=== PATIENT | female | born 1975 | race Caucasian/White ===

== ENCOUNTER 2021-02-03 08:26 | Emergency (ER) | payer OTHER, SELFPAY ==
--- NOTE | 2021-02-03 08:54 | ED.URI ---
HPI - URI/Sore Throat General Chief Complaint: Upper Respiratory Infection Stated Complaint: Congestion,Drainage Time Seen by Provider: 02/03/21 08:55 Source: patient and RN notes reviewed Mode of arrival: ambulatory Limitations: no limitations History of Present Illness HPI Narrative: 45 year old female who presents ambulatory to [facility] with one week duration of frontal headache and sinus congestion. Patient states that she has had no cough or feelings of chest congestion, denies any shortness of breath or wheezing, denies any ear pain or any sore throat. 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 She states that she has been taking Zyrtec and Tylenol for her symptoms with no improvement. MD elicited complaint: rhinorrhea, nasal congestion and other (headache) Pertinent past history: sinusitis Onset (ago): week(s) (1) Consistency: progressively worsening Severity: moderate Pain scale (0-10): 5 Description of mucous: yellow and bloody Able to tolerate fluids by mouth: Yes Exacerbating factors: changing head position and leaning forward Relieving factors: nothing Treatments prior to arrival: acetaminophen and other (Zyrtec) Related Data Allergies Allergy/AdvReac Type Severity Reaction Status Date / Time erythromycin base Allergy Unknown Vomiting Verified 01/19/21 12:11 metformin Allergy Unknown Weakness Verified 01/19/21 12:11 Review of Systems Review of Systems: Narrative: CONSTITUTIONAL: Denies known fever, chills, or sweats. EYES: Denies visual changes, redness, or discharge. ENT: Positive rhinorrhea, congestion, no sore throat, or otalgia. CARDIOVASCULAR: Denies chest pain, palpitations, or edema. RESPIRATORY: Denies cough or dyspnea. GASTROINTESTINAL: Denies abdominal pain, nausea, vomiting, or diarrhea. GENITOURINARY: Denies dysuria or hematuria. SKIN: Denies rash or itching. MUSCULOSKELETAL: Denies back pain, joint pain, or myalgia. NEUROLOGIC:Positive for frontal headache,no numbness, or weakness. PSYCHIATRIC: Denies anxiety or depression. All systems reviewed & are unremarkable except as noted in HPI and below PMFSH Past Medical History Medical History (Updated 02/05/21 @ 11:32 by Richa Sullivan NP) Degenerative disc disease GERD (gastroesophageal reflux disease) Prehypertension Surgical History Surgical History (Updated 02/05/21 @ 11:32 by Richa Sullivan NP) History of cholecystectomy Family History Family History Mother Hypertension Family history of elevated blood lipids Family history of malignant neoplasm of breast in first degree relative, Onset Age: 42 Father Carcinoma of colon, Onset Age: 58 Other Family history of premature coronary heart disease Social History Social History (Updated 02/05/21 @ 11:31 by Richa Sullivan NP) Smoking status: Never smoker Second hand tobacco smoke exposure: No Alcohol intake: current Alcohol use details: rare social Substance use: never Living arrangements: with family Gender identity (if verbalized by the patient): Female Comments At time of signature, agree with nursing past medical, surgical, social and family history. There is no relevant family history pertinent to the presenting complaint Exam Narrative: Exam Narrative: GENERAL: Well-appearing, well-nourished, and in no acute distress. HEAD: Normocephalic, atraumatic. EYES: PERRLA and EOMI. ENT: Nares red with turbinates swollen, yellow rhinorrhea with some blood tinged mucous no acute epistaxis. Mucous membranes moist.TM's normal with good light reflex, throat pink with no lesions or exudates, post nasal drainage present. NECK: Supple.no lymphadenopathy CHEST: Clear to auscultation. No respiratory distress.SAO2 97% on room air HEAR
[2021-02-03 09:10] VITALS: BP 144/85; PULSE 87; RESP 16; TEMP 36.2; O2SAT 97
== END 2021-02-03 09:18 | disposition home or self-care (01) ==
PROVIDERS: Emergency Provider Registered Nurse; PCP Family Medicine
DX: J01.90 Acute sinusitis, unspecified (principal); K21.9 Gastro-esophageal reflux disease without esophagitis
CPT/HCPCS: 99213; G0463

== ENCOUNTER 2021-05-16 05:20 | Emergency (ER) | payer OTHER, SELFPAY ==
--- NOTE | ~2021-05-16 | XR_ITS ---
EXAMINATION: XR chest 2V 05/16/2021 06:13 INDICATION: Chest palpitations PROCEDURE: 2 view chest COMPARISON: Comparison to multiple prior studies sequentially, with oldest reviewed study dated 06/05. FINDINGS: The lungs are clear. Chronic left basilar scarring/atelectasis. The cardiomediastinal silho uette is within normal limits. There are no pleural effusions. There is no pneumothorax suspected. IMPRESSION: 1: NO ACUTE CARDIOPULMONARY DISEASE. Reviewed, dictated and finalized at location A.
[2021-05-16 05:35] VITALS: BP 148/90; PULSE 115; RESP 18; O2SAT 97
--- NOTE | 2021-05-16 05:37 | ECG_ITS ---
Measurements Intervals [place] Rate: 110 P: 17 MI: 132 QRS: 12 QRSD: 85 T: 51 QT: 319 QTc: 432 Interpretive Statements SINUS TACHYCARDIA EARLY PRECORDIAL R/S TRANSITION BORDERLINE ST ABNORMALITY- ANTEROLATERAL LEADS ABNORMAL ECG Electronically Signed On 05-16-2021 6:22:59 CDT by Onesimo Riley D.O.
--- NOTE | 2021-05-16 05:48 | ED.ARRPALP ---
HPI - Arrhythmia/Palpitations General Chief Complaint: Chest Pain Stated Complaint: Heart racing Time Seen by Provider: 05/16/21 05:29 History of Present Illness HPI narrative: 46 yo female w/ h/o anxiety presents to the ED for racing heart. She reports that she has been having issues with anxiety for the past month. For the past few days she has had frequent symptoms. Overnight last night her heart began to race, and this continued for quite some time. She says it has never lasted this long before. Related Data Home Medications Medication Instructions Recorded Confirmed dotdrhyqffgo-Dp-nkwu-minerals tablet PO 04/18/21 04/18/21 Allergies Allergy/AdvReac Type Severity Reaction Status Date / Time erythromycin base Allergy Unknown Vomiting Verified 04/18/21 10:32 metformin Allergy Unknown Weakness Verified 04/18/21 10:32 Review of Systems Review of Systems: All systems reviewed & are unremarkable except as noted in HPI and below Constitutional: Constitutional: Denies chills and Denies fever(s) Cardiovascular: Cardiovascular: Reports chest pain and Reports rapid heart rate Respiratory: Respiratory: Denies dyspnea Gastrointestinal: Gastrointestinal: Denies abdominal pain and Denies nausea Musculoskeletal: Musculoskeletal: Denies back pain Neurologic: Denies numbness and Denies weakness Psychiatric: Psychiatric: Reports anxiety PMFSH Past Medical History Medical History Degenerative disc disease GERD (gastroesophageal reflux disease) Prehypertension Surgical History Surgical History History of cholecystectomy Family History Family History Mother Hypertension Family history of elevated blood lipids Family history of malignant neoplasm of breast in first degree relative, Onset Age: 42 Father Carcinoma of colon, Onset Age: 58 Other Family history of premature coronary heart disease Social History Social History Second hand tobacco smoke exposure: No Alcohol intake: current Alcohol use details: rare social Substance use: never Gender identity (if verbalized by the patient): Female Exam Const: General: healthy appearing and no acute distress Orientation/consciousness: patient oriented x3 HENMT: Head: normal to inspection Neck: Neck: normal visual inspection Resp: Effort & Inspection: normal respiratory effort Auscultation: clear to auscultation bilaterally, no rales, no rhonchi and no wheezes Cardio: Jugular venous distension: no JVD Rate: regular rate Rhythm: regular rhythm Heart sounds: no murmurs GI: Inspection: non-distended GI Palp: Yes Soft to palpation and No Tenderness to palpation present (GI) Skin: General skin exam: normal color Neuro: General: patient oriented x3 and moves all extremities Speech: normal speech Extrem: General: normal to inspection and no edema Psych: Appearance: well kempt Affect: Anxious affect present Course Vital Signs Vital signs: Vital Signs Pulse Rate 115 H 05/16/21 05:35 Respiratory Rate 18 05/16/21 05:35 Blood Pressure 148/90 H 05/16/21 05:35 Pulse Oximetry 97 05/16/21 05:35 Pulse Rate 87 05/16/21 07:22 Respiratory Rate 16 05/16/21 07:22 Blood Pressure 129/94 H 05/16/21 07:22 Pulse Oximetry 100 05/16/21 07:22 MDM - Arrhythmia/Palpitations Differential Diagnosis Differential diagnosis: Likely palpitations, anxiety and sinus tachycardia Medical Records Attestation: I reviewed the patient's medical records. Lab Data Attestation: I reviewed the patient's lab results. Result diagrams: 05/16/21 05:52 05/16/21 05:52 Labs: Lab Results 05/16/21 05/16/21 Range/Units 05:52 05:52 WBC 12.7 H (4.5-10.0) K/mm3 RBC 5.01 (4.2-5.4) M
[2021-05-16 06:02] LABS: Basophils Absolute Auto 0.1 K/mm3 (0.0-0.1); Basophils Percent Auto 0.9 % (0.2-1.2); Eosinophils Absolute Auto 0.1 K/mm3 (0-0.3); Eosinophils Percent Auto 0.6 % (0-4.4); Hematocrit 44.7 % (37.0-47.0); Hemoglobin 14.4 g/dL (12.0-15.0); Immature Granulocyte Absolute 0.04 K/mm3 (0.00-0.031); Immature Granulocyte Percent A 0.3 % (0-0.5); Lymphocytes Absolute Auto 4.15 K/mm3 (0.9-3.2); Lymphocytes Percent Auto 32.7 % (18.3-44.2); Mean Corpuscular HGB Conc 32.2 g/dl (32-36); Mean Corpuscular Hemoglobin 28.7 pg (26-34); Mean Corpuscular Volume 89.2 fl (80-100); Mean Platelet Volume 10.7 fl (7.4-10.4); Monocytes Percent Auto 7.5 % (2.6-8.5); Neutrophils Absolute Auto 7.4 K/mm3 (1.3-6.7); Platelet Count Result 269 k/mm3 (150-375); Red Blood Count 5.01 M/mm3 (4.2-5.4); Red Cell Distribution Width 13.5 % (11.5-14.5); White Blood Count 12.7 K/mm3 (4.5-10.0)
[2021-05-16 06:10] LABS: Anion Gap 12 mmol/L (8-16); Blood Urea Nitrogen 12 mg/dL (7-17); Calcium 9.8 mg/dL (8.4-10.2); Carbon Dioxide 25 mmol/L (22-30); Chloride 100 mmol/L (98-107); Estimated CRCL calculation 73 ml/min; Estimated Glomerular Filt Rate > 60; Glucose 129 mg/dL (65-110); Potassium 3.6 mmol/L (3.4-5.0); Sodium 137 mmol/L (137-145)
[2021-05-16 06:26] VITALS: BP 125/96; PULSE 76; RESP 18; O2SAT 97
[2021-05-16 06:28] LABS: Troponin I < 0.012 ng/mL (0.000-0.034)
[2021-05-16 07:22] VITALS: BP 129/94; PULSE 87; RESP 16; O2SAT 100
== END 2021-05-16 07:29 | disposition home or self-care (01) ==
PROVIDERS: Emergency Provider Emergency Medicine; PCP Family Medicine
DX: R00.2 Palpitations (principal); F41.9 Anxiety disorder, unspecified; K21.9 Gastro-esophageal reflux disease without esophagitis
CPT/HCPCS: 36415; 71046; 80048; 84484; 85025; 93005; 99284

== ENCOUNTER 2021-06-09 10:07 | Emergency (ER) | payer OTHER, SELFPAY ==
--- NOTE | 2021-06-09 10:13 | ED.URI ---
HPI - URI/Sore Throat General Chief Complaint: Upper Respiratory Infection Stated Complaint: sinus infection Time Seen by Provider: 06/09/21 10:48 Source: patient and RN notes reviewed Mode of arrival: ambulatory Limitations: no limitations History of Present Illness HPI Narrative: 46-year-old female presents with concern for sinus pressure, sinus pain, ear popping, headache. Reports 2-day history of symptoms. Reports she has been taking Tylenol for her symptoms. Reports she has been vaccinated for Covid. She denies cough, shortness of breath, body aches, chills, sweats, fever, loss of sense of smell. MD elicited complaint: nasal congestion Related Data Home Medications Medication Instructions Recorded Confirmed arqipdezldxl-Gy-bxhw-minerals tablet PO 04/18/21 04/18/21 Allergies Allergy/AdvReac Type Severity Reaction Status Date / Time erythromycin base Allergy Unknown Vomiting Verified 06/09/21 10:34 metformin Allergy Unknown Weakness Verified 06/09/21 10:34 Review of Systems Review of Systems: CONSTITUTIONAL: Denies malaise, chills, sweats, or fever. EYES: Denies visual changes, redness, or discharge. ENT: Reports rhinorrhea, congestion, sinus pain, otalgia. Denies sore throat. CARDIOVASCULAR: Denies chest pain, palpitations, or edema. RESPIRATORY: Denies cough or dyspnea. GASTROINTESTINAL: Denies abdominal pain, nausea, vomiting, diarrhea SKIN: Denies rash or itching. MUSCULOSKELETAL: Denies myalgia. NEUROLOGIC: Denies headache. All systems reviewed & are unremarkable except as noted in HPI and below PMFSH Past Medical History Medical History Degenerative disc disease GERD (gastroesophageal reflux disease) Prehypertension Surgical History Surgical History History of cholecystectomy Family History Family History Mother Hypertension Family history of elevated blood lipids Family history of malignant neoplasm of breast in first degree relative, Onset Age: 42 Father Carcinoma of colon, Onset Age: 58 Other Family history of premature coronary heart disease Social History Social History Second hand tobacco smoke exposure: No Alcohol intake: current Alcohol use details: rare social Substance use: never Gender identity (if verbalized by the patient): Female Comments At time of signature, agree with nursing past medical, surgical, social and family history. There is no relevant family history pertinent to the presenting complaint Exam Narrative: GENERAL: Well-appearing, well-nourished, and in no acute distress. HEAD: Normocephalic EYES: PERRLA, conjunctivae clear ENT: Nares clear, turbinates edematous and erythematous, clear discharge. Mucous membranes moist. TM pearly rios with dull light reflex bilaterally; no tragal tenderness. Oropharynx erythematous without lesions. Tonsils enlarged and without exudate, no drooling, no hoarseness, no trismus, uvula midline. NECK: Supple. No lymphadenopathy CHEST: Clear to auscultation, breath sounds equal. No wheezing, rhonchi, rales, or stridor. No respiratory distress, speaks in full sentences. HEART: Regular rate and rhythm. No murmur heard. SKIN: Warm, dry, no rash. NEURO: Alert and oriented x3. PSYCH: Normal mood and affect Course Course Emergency Course: Patient is aware of diagnosis, understands and agrees to treatment plan. Anticipatory guidance given. Patient agrees to follow-up as directed and is aware of reasons to seek care at the emergency department. Portions of this record may have been created with voice recognition software Vital Signs Vital signs: Reviewed. Patient has been instructed to follow up with her primary care provider within the next week regarding her elevated blood pressure today. CATRINA GALINDO
[2021-06-09 10:19] VITALS: BP 128/84; PULSE 79; RESP 18; TEMP 36.6; O2SAT 100
== END 2021-06-09 11:02 | disposition home or self-care (01) ==
PROVIDERS: Emergency Provider Nurse Practitioner; PCP Family Medicine
DX: J06.9 Acute upper respiratory infection, unspecified (principal); Z20.822 Contact with and (suspected) exposure to COVID-19; K21.9 Gastro-esophageal reflux disease without esophagitis; R03.0 Elevated blood-pressure reading, without diagnosis of hypertension
CPT/HCPCS: 87426; 99213; C9803; G0463

== ENCOUNTER 2023-08-29 01:16 | Day surgery (SDC) | payer OTHER, SELFPAY ==
[2023-08-19 09:00] VITALS: BMI 37.8
--- NOTE | 2023-08-28 13:48 | PM.HPGS ---
History of Present Illness History of Present Illness Consent: Risks, benefits, and alternatives have been discussed and questions answered. Patient agrees to proceed with procedure. Chief complaint: neoplasm screening Narrative: Justyna Arroyo is a 48 year old female Referred for colon cancer screening. Review of Systems Review of Systems: All systems reviewed & are unremarkable except as noted in HPI and below PMFSH Past Medical History Medical History Anxiety Degenerative disc disease Encounter for immunization GERD (gastroesophageal reflux disease) Prehypertension Surgical History Surgical History History of cholecystectomy Family History Family History Mother Hypertension Family history of elevated blood lipids Family history of malignant neoplasm of breast in first degree relative, Onset Age: 42 Father Carcinoma of colon, Onset Age: 58 Other Family history of premature coronary heart disease Social History Social History Smoking status: Never smoker Second hand tobacco smoke exposure: No Alcohol intake: never Alcohol use details: rare social Substance use: never Substance use type: does not use Lack of Transportation: No Lack of Food: Never True Current Housing: Decline to Answer Concerned About Future Housing: No Difficulty Paying Gas/Electric Bills: No Difficulty Paying for Meds: No Currently Unemployed: No Education: Bachelor's Degree Difficulty w/ Childcare or Family Care: No Living arrangements: with family Gender identity (if verbalized by the patient): Female Spiritual care concerns: No Agree to blood products: Yes Meds Home Medications and Allergies Home Medications Medication Instructions Recorded Confirmed Type luuvvxkfztvv-Kz-aivo-minerals 1 tablet PO DAILY 04/18/21 08/19/23 History (Multiple Vitamin, Womens tablet) calcium carbonate 600 mg-vitamin 1 tablet PO DAILY #30 tabs 04/03/22 08/19/23 Rx D3 20 mcg (800 unit) chewable tablet (Caltrate 600 plus D) buspirone 10 mg tablet 10 mg PO TID PRN anxiety #20 tabs 04/09/23 08/19/23 Rx fluticasone propionate 50 2 spray intranasal DAILY PRN 08/19/23 08/19/23 History mcg/actuation nasal Allergy Symptoms spray,suspension (Flonase Allergy Relief) Allergies Allergy/AdvReac Type Severity Reaction Status Date / Time erythromycin base Allergy Intermediate Vomiting Verified 08/29/23 08:54 metformin Allergy Intermediate Dizziness Verified 08/29/23 08:54 Exam Const: General: alert Orientation/consciousness: patient oriented x3 Resp: Auscultation: clear to auscultation bilaterally Cardio: Rhythm: regular rhythm GI: GI Palp: Yes Soft to palpation and No Tenderness to palpation present (GI) Neuro: General: patient oriented x3 Assessment and Plan Assessment and plan (1) Colon cancer screening: Code(s): Z12.11 - Encounter for screening for malignant neoplasm of colon Status: Acute Assessment and Plan: Colonoscopy with possible biopsy or polypectomy or cautery or injection of substances.
--- NOTE | 2023-08-29 07:27 | WPDANESEPPF ---
Anes - Initial Pre Proc Eval Procedure: Operation Date: 08/29/23 10:15 Proposed Procedures p Screening Colonoscopy - Cisco Calderon MD Date/Time: 08/29/23 07:27 Surgeon: Cisco Calderon MD Pre Op Diagnosis: neoplasm screening Patient Data Age: 48 Gender: F Height: 1.63 m Weight: 100 kg Allergies Allergy/AdvReac Type Severity Reaction Status Date / Time erythromycin base Allergy Intermediate Vomiting Verified 08/29/23 08:54 metformin Allergy Intermediate Dizziness Verified 08/29/23 08:54 Home Medications Medication Instructions Recorded Confirmed Type cqpmuzjpvyth-Jr-faon-minerals 1 tablet PO DAILY 04/18/21 08/19/23 History (Multiple Vitamin, Womens tablet) calcium carbonate 600 mg-vitamin 1 tablet PO DAILY #30 tabs 04/03/22 08/19/23 Rx D3 20 mcg (800 unit) chewable tablet (Caltrate 600 plus D) buspirone 10 mg tablet 10 mg PO TID PRN anxiety #20 tabs 04/09/23 08/19/23 Rx fluticasone propionate 50 2 spray intranasal DAILY PRN 08/19/23 08/19/23 History mcg/actuation nasal Allergy Symptoms spray,suspension (Flonase Allergy Relief) Patient hx anesthesia problems: none Family hx anesthesia problems: none Results Review: All pre-operative results and documents have been reviewed as part of the pre-operative evaluation. [facility] Past Medical History Medical History Anxiety Degenerative disc disease Encounter for immunization GERD (gastroesophageal reflux disease) Prehypertension Surgical History Surgical History History of cholecystectomy Family History Family History Mother Hypertension Family history of elevated blood lipids Family history of malignant neoplasm of breast in first degree relative, Onset Age: 42 Father Carcinoma of colon, Onset Age: 58 Other Family history of premature coronary heart disease Social History Social History Smoking status: Never smoker Second hand tobacco smoke exposure: No Alcohol intake: never Alcohol use details: rare social Substance use: never Substance use type: does not use Lack of Transportation: No Lack of Food: Never True Current Housing: Decline to Answer Concerned About Future Housing: No Difficulty Paying Gas/Electric Bills: No Difficulty Paying for Meds: No Currently Unemployed: No Education: Bachelor's Degree Difficulty w/ Childcare or Family Care: No Living arrangements: with family Gender identity (if verbalized by the patient): Female Spiritual care concerns: No Agree to blood products: Yes Anes - Eval Final PreProcedure Day of Procedure 08/29/23 07:27 Patient weight: obese Heart: regular rate and rhythm Lungs: clear to auscultation Airway: Mallampati scale class II Neurological: alert and oriented Last oral intake: >/= 8 hours ASA classification: II Emergent: no Anesthetic plan: proceed Anesthesia type and monitoring: general GIVS and standard monitoring Results Review: All pre-operative results and documents have been reviewed as part of the pre-operative evaluation. Informed Consent: The patient's anesthetic plan and its attendant risks and benefits were discussed with the patient/family/POA. Questions were solicited and answers provided to the satisfaction of the patient/family/POA.
[2023-08-29 08:57] VITALS: BP 128/89; PULSE 101; RESP 20; TEMP 36.5; O2SAT 99; BMI 37.5
[2023-08-29] MEDS: LACTATED RINGERS 1,000 ML 150 ML IV CONT (09:03)
--- NOTE | 2023-08-29 09:05 | WPDANESEPPF ---
Anes - Initial Pre Proc Eval Procedure: Operation Date: 08/29/23 10:15 Proposed Procedures p Screening Colonoscopy - Cisco Calderon MD Date/Time: 08/29/23 09:05 Surgeon: Cisco Calderon MD Pre Op Diagnosis: neoplasm screening Patient Data Age: 48 Gender: F Height: 1.63 m Weight: 99.3 kg Last Vital Signs Temp 97.7 F 08/29/23 08:57 Pulse 101 H 08/29/23 08:57 Resp 20 08/29/23 08:57 BP 128/89 08/29/23 08:57 Pulse Ox 99 08/29/23 08:57 O2 Del Method Room Air 08/29/23 08:57 Allergies Allergy/AdvReac Type Severity Reaction Status Date / Time erythromycin base Allergy Intermediate Vomiting Verified 08/29/23 08:54 metformin Allergy Intermediate Dizziness Verified 08/29/23 08:54 Home Medications Medication Instructions Recorded Confirmed Type fvkvkrjkytkn-Mb-bdaa-minerals 1 tablet PO DAILY 04/18/21 08/19/23 History (Multiple Vitamin, Womens tablet) calcium carbonate 600 mg-vitamin 1 tablet PO DAILY #30 tabs 04/03/22 08/19/23 Rx D3 20 mcg (800 unit) chewable tablet (Caltrate 600 plus D) buspirone 10 mg tablet 10 mg PO TID PRN anxiety #20 tabs 04/09/23 08/19/23 Rx fluticasone propionate 50 2 spray intranasal DAILY PRN 08/19/23 08/19/23 History mcg/actuation nasal Allergy Symptoms spray,suspension (Flonase Allergy Relief) Patient hx anesthesia problems: none Family hx anesthesia problems: none Results Review: All pre-operative results and documents have been reviewed as part of the pre-operative evaluation. [facility] Past Medical History Medical History Anxiety Degenerative disc disease Encounter for immunization GERD (gastroesophageal reflux disease) Prehypertension Surgical History Surgical History History of cholecystectomy Family History Family History Mother Hypertension Family history of elevated blood lipids Family history of malignant neoplasm of breast in first degree relative, Onset Age: 42 Father Carcinoma of colon, Onset Age: 58 Other Family history of premature coronary heart disease Social History Social History (Updated 04/09/23 @ 13:46 by Татьяна Estrada [facility]) Smoking status: Never smoker Second hand tobacco smoke exposure: No Alcohol intake: never Alcohol use details: rare social Substance use: never Substance use type: does not use Lack of Transportation: No Lack of Food: Never True Current Housing: Decline to Answer Concerned About Future Housing: No Difficulty Paying Gas/Electric Bills: No Difficulty Paying for Meds: No Currently Unemployed: No Education: Bachelor's Degree Difficulty w/ Childcare or Family Care: No Living arrangements: with family Gender identity (if verbalized by the patient): Female Spiritual care concerns: No Agree to blood products: Yes Anes - Eval Final PreProcedure Day of Procedure 08/29/23 09:05 Patient weight: obese Heart: regular rate and rhythm Lungs: clear to auscultation Airway: Mallampati scale class II Neurological: alert and oriented Last oral intake: >/= 8 hours ASA classification: III Emergent: no Anesthetic plan: proceed Anesthesia type and monitoring: general GIVS and standard monitoring Results Review: All pre-operative results and documents have been reviewed as part of the pre-operative evaluation. Informed Consent: The patient's anesthetic plan and its attendant risks and benefits were discussed with the patient/family/POA. Questions were solicited and answers provided to the satisfaction of the patient/family/POA.
[2023-08-29 10:19] VITALS: BP 135/80; PULSE 80; RESP 21; O2SAT 100
[2023-08-29 10:29] VITALS: BP 133/85; PULSE 79; RESP 21; O2SAT 100
[2023-08-29 10:35] VITALS: BP 122/86; PULSE 87; RESP 20; O2SAT 100
== END 2023-08-29 10:44 | disposition home or self-care (01) ==
PROVIDERS: PCP Family Medicine; Visit Provider Internal Medicine Gastroenterology
PROC: 0DJD8ZZ Inspection of Lower Intestinal Tract, Via Natural or Artificial Opening Endoscopic (ICD-10-PCS; CPT 45378; principal; 2023-08-29 10:15)
DX: Z12.11 Encounter for screening for malignant neoplasm of colon (principal); D12.0 Benign neoplasm of cecum; K63.5 Polyp of colon; K64.8 Other hemorrhoids; F41.9 Anxiety disorder, unspecified; E66.9 Obesity, unspecified; Z68.37 Body mass index [BMI] 37.0-37.9, adult
CPT/HCPCS: 45385; 88305; J2704; J7120

== ENCOUNTER 2024-12-15 08:17 | Emergency (ER) | payer OTHER, SELFPAY ==
--- NOTE | 2024-12-15 08:20 | ED_ITS ---
HPI - URI/Sore Throat General Chief Complaint: Upper Respiratory Infection Stated Complaint: Sinus Infection Symptoms Time Seen by Provider: 12/15/24 08:52 Source: patient and RN notes reviewed Mode of arrival: ambulatory Limitations: no limitations History of Present Illness HPI Narrative: 49-year-old female presents with concern for more than 2 week history of sinus congestion, drainage, pressure, pain reports. Reports postnasal drainage has worsen. She reports [id number] medications are not helping. MD elicited complaint: nasal congestion and sinus pain Related Data Home Medications ?Medication ?Instructions ?Recorded ?Confirmed ?Last Taken ?Type gonrevcbtiha-Uw-dket-minerals 1 tablet PO DAILY 04/18/21 04/14/24 08/28/23 History (Multiple Vitamin, Womens tablet) fluticasone propionate 50 2 spray intranasal DAILY PRN 08/19/23 04/14/24 08/28/23 History mcg/actuation nasal Allergy Symptoms spray,suspension (Flonase Allergy Relief) Allergies Allergy/AdvReac Type Severity Reaction Status Date / Time erythromycin base Allergy Intermediate Vomiting Verified 12/15/24 08:56 metformin Allergy Intermediate Dizziness Verified 12/15/24 08:56 Review of Systems Review of Systems: CONSTITUTIONAL: Reports malaise. Denies chills, sweats, or fever. EYES: Denies visual changes, redness, or discharge. ENT: Reports rhinorrhea, congestion, sinus pain, and sore throat. CARDIOVASCULAR: Denies chest pain, palpitations, or edema. RESPIRATORY: Reports cough. Denies dyspnea. GASTROINTESTINAL: Denies abdominal pain, nausea, vomiting, diarrhea SKIN: Denies rash or itching. MUSCULOSKELETAL: Reports myalgia. NEUROLOGIC: Reports headache. All systems reviewed & are unremarkable except as noted in HPI and below PMFSH Past Medical History Medical History Anxiety Degenerative disc disease Encounter for immunization GERD (gastroesophageal reflux disease) Prehypertension Surgical History Surgical History History of cholecystectomy Family History Family History Mother Hypertension Family history of elevated blood lipids Family history of malignant neoplasm of breast in first degree relative, Onset Age: 42 Father Carcinoma of colon, Onset Age: 58 Other Family history of premature coronary heart disease Social History Social History Smoking status: Never smoker Second hand tobacco smoke exposure: No Alcohol intake: never Alcohol use details: rare social Substance use: never Substance use type: does not use Lack of Transportation: No Lack of Food: Never True Current Housing: Decline to Answer Concerned About Future Housing: No Difficulty Paying Gas/Electric Bills: No Difficulty Paying for Meds: No Currently Unemployed: No Education: Bachelor's Degree Difficulty w/ Childcare or Family Care: No Living arrangements: with family Gender identity (if verbalized by the patient): Female Spiritual care concerns: No Agree to blood products: Yes Comments At time of signature, agree with nursing past medical, surgical, social and family history. There is no relevant family history pertinent to the presenting complaint Exam Narrative: GENERAL: Well-appearing, well-nourished, and in no acute distress. HEAD: Normocephalic EYES: PERRLA, conjunctivae clear ENT: Nares clear, turbinates edematous and erythematous. Mucous membranes moist. TM pearly rios with dull light reflex bilaterally; no tragal tenderness. Oropharynx not erythematous without lesions. Tonsils not enlarged and without exudate, no drooling, no hoarseness, no trismus, uvula midline. NECK: Supple. No lymphadenopathy CHEST: Clear to auscultation, breath sounds equal. No wheezing, rhonchi, rales, or stridor. No respiratory distress, speaks in full sentences. HEART: Regular rate and rhythm. No murmur heard. SKIN: Warm, dry, no rash. NEURO: Alert and oriented x3. PSYCH: Normal mood and affect Course Course Emergency Course: Patient is aware of diagnosis, understands and agrees to treatment plan. Anticipatory guidance given. Patient agrees to follow-up as directed and is aware of reasons to seek care at the emergency department. Portions of this record may have been created with voice recognition software Level of Care: Express Care Visit Vital Signs Vital signs: Vital Signs Temperature 97.7 F 12/15/24 08:40 Pulse Rate 104 H 12/15/24 08:40 Respiratory Rate 16 12/15/24 08:40 Blood Pressure 173/100 H 12/15/24 08:40 Pulse Oximetry 100 12/15/24 08:40 Temperature 97.7 F 12/15/24 08:40 Pulse Rate 104 H 12/15/24 08:40 Respiratory Rate 16 12/15/24 08:40 Blood Pressure 173/100 H 12/15/24 08:40 Pulse Oximetry 100 12/15/24 08:40 Reviewed. MDM - URI/Sore Throat MDM Narrative Medical decision making narrative: Differential diagnosis considered: Zaragoza virus, strep pharyngitis, allergic rhinitis, upper respiratory tract infection, sinusitis, rhinosinusitis, nasopharyngitis. viral pharyngitis, otitis media, otitis externa, pneumonia, bronchitis, viral cough syndrome, viral syndrome, and influenza. Exam findings show no acute concerns or changes; patient is non-toxic appearing and is in no distress. Patient is appropriate for outpatient treatment and follow-up. Lab Data Attestation: I reviewed the patient's lab results. Critical Care Time Critical Care Time Critical Care Time: No Discharge Plan Discharge Clinical Impression: Acute bacterial sinusitis Patient Disposition: Home, Self-Care Condition: Stable Instructions: Antibiotic Form, Sinusitis (ED) Additional Instructions: Take medication as prescribed Nonprescription pain medications, such as acetaminophen (eg, Tylenol) or ibuprofen (eg, Motrin, Advil), are recommended for pain. Flushing the nose and sinuses with a saline solution several times per day has been proven to decrease pain associated with congestion and shorten the duration of symptoms. Nasal steroids (such as Flonase, 2 sprays in each nostril daily) can help to reduce swelling inside the nose, usually within two to three days. These drugs have few side effects and relieve symptoms in most people. Oral decongestants (pseudoephedrine and phenylephrine) may be helpful if you have associated symptoms of ear pain or fullness. Nasal decongestant sprays, including oxymetazoline (Afrin) and phenylephrine (Pasha-Synephrine), can be used to temporarily treat congestion. However, these sprays should not be used for more than two to three days due to the risk of rebound congestion (when the nose becomes congested constantly unless the medication is used repeatedly), possible addiction, and long-term consequences of frequent use, including persistent nasal dryness and crusting, which is very difficult to treat once it has developed. Medications to thin secretions (such as guaifenesin) may help to clear mucus. Please follow-up with your primary care doctor in the next 1-2 days. If you cannot follow-up with your primary care doctor please go to the ED for any urgent issues. If you have any worsening of symptoms or any other concerns please go to the ED immediately. Patient Language: Yi Prescriptions: New methylprednisolone [Medrol (Rigoberto)] 4 mg tablets,dose pack See Rx Instructions .ROUTE .COMPLEX Qty: 21 0RF Rx Instructions: orally per package directions amoxicillin-pot clavulanate 875-125 mg tablet 1 tablet PO Q12H 10 Days Qty: 20 0RF No Action Multiple Vitamin, Womens Tablet 1 tablet PO DAILY Caltrate 600 plus D 600 mg-20 mcg (800 unit) tablet,chewable 1 tablet PO DAILY Qty: 30 0RF buspirone 10 mg tablet 10 mg PO TID PRN (Reason: anxiety) Qty: 20 0RF fluticasone propionate [Flonase Allergy Relief] 50 mcg/actuation spray,suspension 2 spray NASAL DAILY PRN (Reason: Allergy Symptoms) Rx Instructions: administer into each nostril Follow-up/Referrals: PHYSICIAN,[employer] [Primary Care Provider] - Stand Alone Forms: Work/School Release IP Time of Disposition: 09:02
[2024-12-15 08:40] VITALS: BP 173/100; PULSE 104; RESP 16; TEMP 36.5; O2SAT 100
== END 2024-12-15 09:12 | disposition home or self-care (01) ==
PROVIDERS: Emergency Provider Nurse Practitioner
DX: J01.90 Acute sinusitis, unspecified (principal); K21.9 Gastro-esophageal reflux disease without esophagitis; R03.0 Elevated blood-pressure reading, without diagnosis of hypertension
CPT/HCPCS: 99213; G0463